=== PATIENT | female | born 1995 | race Two or more races ===

== ENCOUNTER 2024-05-06 11:41 | Emergency (ER) | payer OTHER ==
[~2024-05-06] VITALS: Ht 167.6 cm; Wt 111.1 kg
[2024-05-06 11:56] VITALS: BP 129/79; TEMP 97.9
[2024-05-06] MEDS ORDERED: KETOROLAC TROMETHAMINE 15 MG/ML VIAL ONE (12:23)
[2024-05-06] MEDS: KETOROLAC TROMETHAMINE 15 MG/ML VIAL IM ONE (12:26)
[2024-05-06] MEDS ORDERED: NAPR-1164 PO (12:32)
[2024-05-06 12:48] VITALS: O2SAT 98
== END 2024-05-06 12:49 | disposition home or self-care (01) ==
LOC: ER 12:04
DX: M62.830 Muscle spasm of back (principal)
CPT/HCPCS: 99283; 96372; J1885